=== PATIENT | male | born 1965 | race Caucasian/White ===

== ENCOUNTER 2021-04-18 08:19 | Emergency (ER) | payer MEDICAID ==
[2021-04-18] MEDS ORDERED: Sodium Chloride 0.9% 10 ML Syringe FLUSH PRN (08:33)
[2021-04-18] MEDS ORDERED: Aspirin 81 MG Tab.Chew PO ONE (08:34)
[2021-04-18] MEDS ORDERED: Nitroglycerin 0.4 MG Tab.SL SL ONE ×2 (08:34→09:14)
--- NOTE | 2021-04-18 08:35 | EDM.PDOC ---
ED HPI GENERAL MEDICAL PROBLEM - General Source of Information: Reports: Patient Middle Chest Pain Score (Numeric/FACES): 5 <Kaykay Saba - Last Filed: 04/18/21 09:02> <Grecia Munoz - Last Filed: 04/18/21 12:40> - General Chief Complaint: Cardiovascular Problem Stated Complaint: CHEST PAIN Time Seen by Provider: 04/18/21 08:30 - History of Present Illness INITIAL COMMENTS - FREE TEXT/NARRATIVE: Vance is a 55 y/o male who comes to the ER via POV with chest pain. He reports being at work this AM and he started to have midsternal chest pain. He denied that activity changed the pain. He rates it 5/10. He denies diaphoresis or radiation of the pain, but he did get nauseated. No previous cardiac hx, he adams shave a HX of HTN. His dad did have a stent placed around age 50. (Kaykay Saba) - Related Data Allergies Allergy/AdvReac Type Severity Reaction Status Date / Time No Known Allergies Allergy Verified 04/18/21 08:51 Home Meds: Home Meds Dorzolamide HCl/Timolol Maleat [Cosopt Eye Drops] 1 drop EYEBOTH BID 01/02/21 [History] Latanoprost/Pf [Latanoprost 0.005% Eye Drop] 1 drop EYEBOTH BEDTIME 01/02/21 [History] Saw [place] 160 mg PO DAILY 01/02/21 [History] Vit A/Vit C/Vit E/Zinc/Copper [Preservision] 1 each PO BID 01/02/21 [History] amLODIPine [Norvasc] 5 mg PO DAILY 01/02/21 [History] lisinopriL [Lisinopril] 20 mg PO BID 01/02/21 [History] Past Medical History HEENT History: Reports: Glaucoma Cardiovascular History: Reports: Hypertension Gastrointestinal History: Reports: Other (See Below) Other Gastrointestinal History: anisocoria - Past Surgical History HEENT Surgical History: Reports: Other (See Below) Other HEENT Surgeries/Procedures: eye surgery glaucoma right eye <Kaykay Saba - Last Filed: 04/18/21 09:02> Review of Systems - Review of Systems Review Of Systems: See Below Constitutional: Reports: No Symptoms Eyes: Reports: No Symptoms Ears: Reports: No Symptoms Nose: Reports: No Symptoms Mouth/Throat: Reports: No Symptoms Respiratory: Reports: No Symptoms Cardiovascular: Reports: Chest Pain GI/Abdominal: Reports: Nausea Genitourinary: Reports: No Symptoms Musculoskeletal: Reports: No Symptoms Skin: Reports: No Symptoms Neurological: Reports: No Symptoms Psychiatric: Reports: No Symptoms <Kaykay Saba Last Filed: 04/18/21 09:02> ED EXAM, GENERAL - Physical Exam Exam: See Below General Appearance: Alert, WD/WN, No Apparent Distress (Adult male.) Ears: Hearing Grossly Normal Nose: Normal Inspection Throat/Mouth: Normal Inspection, Normal Lips, Normal Voice Head: Atraumatic, Normocephalic Neck: Normal Inspection, Supple Respiratory/Chest: No Respiratory Distress, Lungs Clear, Chest Non-Tender Cardiovascular: Normal Peripheral Pulses, Regular Rate, Rhythm, No Murmur GI/Abdominal: Normal Bowel Sounds, Soft, Non-Tender (Male) Exam: Deferred Rectal (Males) Exam: Deferred Back Exam: Normal Inspection Extremities: Normal Inspection, Normal Range of Motion, No Pedal Edema, Normal Capillary Refill Neurological: Alert, Oriented, CN II-XII Intact, Normal Cognition Psychiatric: Normal Affect, Normal Mood Skin Exam: Warm, Dry, Intact, Normal Color <Kaykay Saba Filed: 04/18/21 09:02> #1 Interpretation EKG Date: 04/18/21 Time: 08:23 Rhythm: NSR Rate (Beats/Min): 74 [place]: Normal P-Wave: Present QRS: Normal ST-T: Normal QT: Normal <Kaykay Saba Filed: 04/18/21 09:02> #1 Interpretation EKG Interpretation Comments: Normal Sinus Rhythm (Kaykay Saba) Course <Kaykay Saba Filed: 04/18/21 09:02> <Grecia Munoz Last Filed: 04/18/21 12:40> - Vital Signs Text/Narrative:: 829 Patient seen by the CHAINMAN. Labs, CXR, & EKG ordered. He was given ASA 324mgpo and a Nitro 0.4mg SL. Pain decreased to 1/10 and second Nitro given. 0900 Report given to Julieta Munoz PA-C at shift change. Labs pending. (Kaykay Saba) Last Recorded V/S: Last Vital Signs Temp 97.2 F 04/18/21 08:19 Pulse 77 04/18/21 09:03 Resp 17 04/18/21 09:03 BP 121/74 04/18/21 09:03 Pulse Ox 98 04/18/21 09:03 - Orders/Labs/Meds Orders: Active Orders 24 hr Category Date Time Status EKG Documentation Completion [RC] STAT Care 04/18/21 08:34 Active Sodium Chloride 0.9% [Normal Saline] 1,000 ml Med 04/18/21 08:45 Active IV ASDIRECTED Sodium Chloride 0.9% [Saline Flush] Med 04/18/21 08:33 Active 10 ml FLUSH ASDIRECTED PRN Saline Lock Insert [OM.PC] Stat Oth 04/18/21 08:34 Ordered Medication Orders Sodium Chloride (Normal Saline) 1,000 mls @ 50 mls/hr IV ASDIRECTED TIERRA Last Admin: 04/18/21 09:14 Dose: 50 mls/hr Documented by: MAHAD Sodium Chloride (Sodium Chloride 0.9% 10 Ml Syringe) 10 ml FLUSH ASDIRECTED PRN PRN Reason: Keep Vein Open Labs: Laboratory Tests 04/18/21 04/18/21 04/18/21 Range/Units 08:35 08:35 08:35 WBC 5.7 (4.0-10.0) x10^3/uL RBC 5.21 (4.5-6.0) x10^6/uL Hgb 14.4 (14.0-18.0) g/dL Hct 44.1 (40.0-52.0) % MCV 84.6 (78.0-93.0) fL MCH 27.6 (26.0-32.0) pg MCHC 32.7 (32.0-36.0) g/dL RDW Coeff of Darrell 15.0 (10.0-15.0) % Plt Count 272 (130-400) x10^3/uL Neut % (Auto) 64.5 (50.0-80.0) % Lymph % (Auto) 22.3 L (25.0-50.0) % Steele % (Auto) 9.7 (2.0-11.0) % Eos % (Auto) 3.0 (0.0-4.0) % Baso % (Auto) 0.5 (0.2-1.2) % PT 10.4 (9.9-12.5) SEC INR 0.9 L (2.0-3.5) APTT 27.2 (25.6-32.8) SEC Sodium 139 (136-145) mmol/L Potassium 4.2 (3.5-5.1) mmol/L Chloride 106 (98-107) mmol/L Carbon Dioxide 26 (21-32) mmol/L Anion Gap 11.2 (5-15) mmol/L BUN 18 (7-18) mg/dL Creatinine 0.9 (0.70-1.30) mg/dL Est Cr Clr Drug Dosing TNP Estimated GFR (MDRD) > 60 Glucose 104 H (70-99) mg/dL Calcium 8.2 L (8.5-10.1) mg/dL Corrected Calcium 8.7 (8.5-10.1) mg/dL Magnesium 1.8 (1.8-2.4) mg/dL Total Bilirubin 0.3 (0.2-1.0) mg/dL AST 31 (15-37) U/L ALT 26 (16-63) U/L Alkaline Phosphatase 101 (46-116) U/L Troponin I High Sens 5 (<=76) ng/L C-Reactive Protein 0.9 (<=0.9) mg/dL Total Protein 7.5 (6.4-8.2) g/dL Albumin 3.4 (3.4-5.0) g/dL Globulin 4.1 Albumin/Globulin Ratio 0.83 04/18/21 Range/Units 12:02 WBC (4.0-10.0) x10^3/uL RBC (4.5-6.0) x10^6/uL Hgb (14.0-18.0) g/dL Hct (40.0-52.0) % MCV (78.0-93.0) fL MCH (26.0-32.0) pg MCHC (32.0-36.0) g/dL RDW Coeff of Darrell (10.0-15.0) % Plt Count (130-400) x10^3/uL Neut % (Auto) (50.0-80.0) % Lymph % (Auto) (25.0-50.0) % Steele % (Auto) (2.0-11.0) % Eos % (Auto) (0.0-4.0) % Baso % (Auto) (0.2-1.2) % PT (9.9-12.5) SEC INR (2.0-3.5) APTT (25.6-32.8) SEC Sodium (136-145) mmol/L Potassium (3.5-5.1) mmol/L Chloride (98-107) mmol/L Carbon Dioxide (21-32) mmol/L Anion Gap (5-15) mmol/L BUN (7-18) mg/dL Creatinine (0.70-1.30) mg/dL Est Cr Clr Drug Dosing Estimated GFR (MDRD) Glucose (70-99) mg/dL Calcium (8.5-10.1) mg/dL Corrected Calcium (8.5-10.1) mg/dL Magnesium (1.8-2.4) mg/dL Total Bilirubin (0.2-1.0) mg/dL AST (15-37) U/L ALT (16-63) U/L Alkaline Phosphatase (46-116) U/L Troponin I High Sens 5 (<=76) ng/L C-Reactive Protein (<=0.9) mg/dL Total Protein (6.4-8.2) g/dL Albumin (3.4-5.0) g/dL Globulin Albumin/Globulin Ratio Meds: Medications Generic Name Dose Route Start Last Admin Trade Name Freq PRN Reason Stop Dose Admin Sodium Chloride 1,000 mls @ 50 mls/hr 04/18/21 08:45 04/18/21 09:14 Normal Saline IV 50 mls/hr ASDIRECTED TIERRA Administration Sodium Chloride 10 ml 04/18/21 08:33 Sodium Chloride 0.9% 10 Ml Syringe FLUSH ASDIRECTED PRN Keep Vein Open Discontinued Medications Generic Name Dose Route Start Last Admin Trade Name Freq PRN Reason Stop Dose Admin Aspirin 324 mg 04/18/21 08:34 04/18/21 08:23 Aspirin 81 Mg Tab.Chew PO 04/18/21 08:35 324 mg ONETIME ONE Administration Nitroglycerin 0.4 mg 04/18/21 08:34 04/18/21 08:39 Nitroglycerin 0.4 Mg Tab.Sl SL 04/18/21 08:35 0.4 mg ONETIME ONE Administration Nitroglycerin 0.4 mg 04/18/21 09:14 04/18/21 08:49 Nitroglycerin 0.4 Mg Tab.Sl 04/18/21 09:15 0.4 mg ONETIME ONE Administration - Re-Assessments/Exams Free Text/Narrative Re-Assessment/Exam: 04/18/21 09:19 Labs are all normal. EKG shows sinus rhythm. Chest xray clear. Patient feeling good, no further pain. Did contact Dr. Henriquez in regards to obtaining a stress test. Will repeat troponin in 3 hours and if negative, will have patient follow up in clinic tomorrow with her. Patient informed. 04/18/21 1030 Patient resting comfortably. Denies any recurring pain, shortness of breath. 04/18/21 12:39 troponin remains normal. Will have patient follow up in clinic with Dr. Henriquez to arrange stress test. Return if pain recurs or develops changes. (Grecia Munoz) Departure <Kaykay Saba - Last Filed: 04/18/21 09:02> - Departure Time of Disposition: 12:39 Condition: Good - Discharge Information *PRESCRIPTION DRUG MONITORING PROGRAM REVIEWED*: No *COPY OF PRESCRIPTION DRUG MONITORING REPORT IN PATIENT SHAI: No <Grecia Munoz - Last Filed: 04/18/21 12:40> - Departure Disposition: Home, Self-Care 01 Clinical Impression: Chest pain - Discharge Information Instructions: Nonspecific Chest Pain, Adult, [id number] Referrals: Damaris Henriquez MD [Primary Care Provider] - Forms: ED Department Discharge Additional Instructions: 1. Rest. 2. Aspirin daily 3. Contact [facility] to arrange follow up with DR. Henriquez tomorrow to consider stress test due to symptoms and family history 4. Return if pain returns, develop shortness of breath, nausea or sweating. Sepsis Event Note (ED) - Focused Exam Vital Signs: Vital Signs Temp Pulse Resp BP BP Pulse Ox 04/18/21 09:03 77 17 121/74 98 07/01/21 08:49 120/76 04/18/21 08:47 82 16 120/76 98 04/18/21 08:39 135/94 H 04/18/21 08:19 97.2 F 80 16 135/94 H 97
[2021-04-18] MEDS ORDERED: Sodium Chloride 0.9% 1,000 ML IV SCH (08:45)
[2021-04-18 09:03] LABS: PTT,PARTIAL THROMBOPLSTIN TIME 27.2 SEC (25.6-32.8)
[2021-04-18 09:04] LABS: CHLORIDE,CL 106 mmol/L (98-107); SODIUM,NA 139 mmol/L (136-145)
[2021-04-18 09:07] LABS: ANION GAP 11.2 mmol/L (5-15)
--- NOTE | 2021-04-18 09:08 | CR ---
[id number] RAD/RAD Chest PA or AP 1V EXAM: RAD Chest PA or AP 1V INDICATION: CHEST PAIN, HISTORY OF HTN. COMPARISON: None available. DISCUSSION: Cardiomediastinal silhouette is normal in size and contour. No infiltrate, effusion, pneumothorax, or edema. IMPRESSION: No acute cardiopulmonary abnormality. Ran Landaverde DO 04/18/21 0907 Thank you for allowing us to participate in the care of your patient.
[2021-04-18 12:53] VITALS: BP 134/82; PULSE 66
== END 2021-04-18 12:46 | disposition home or self-care (01) ==
LOC: VM.ED 08:19
DX: R07.2 Precordial pain (principal); R07.89 Other chest pain; I10 Essential (primary) hypertension; Z79.899 Other long term (current) drug therapy
CPT/HCPCS: 36415; 71045; 80053; 83735; 84484; 85025; 85610; 85730; 86140; 93005; 99285-25; A9270-GY; J7030

== ENCOUNTER 2021-10-25 08:24 | Day surgery (SDC) | payer BC, MEDICAID ==
[~2021-10-25 08:24] MED LIST: Lactated Ringers 1,000 ML IV SCH; Sodium Chloride 0.9% 10 ML Syringe FLUSH PRN
[2021-10-25] MEDS ORDERED: Propofol 200 MG/20 ML SDV ONE (08:45)
[2021-10-25] MEDS ORDERED: fentaNYL 100 MCG/2 ML SDV ONE ×2 (08:45→10:22)
[2021-10-25] MEDS ORDERED: Midazolam 1 MG/ML 2 ML SDV ONE (08:45)
[2021-10-25] MEDS ORDERED: Ketorolac 30 MG/ML SDV ONE (08:46)
[2021-10-25] MEDS ORDERED: ceFAZolin 1 GM Vial ONE (08:46)
[2021-10-25] MEDS ORDERED: Rocuronium 50 MG/5 ML Vial ONE ×2 (08:50→10:58)
[2021-10-25] MEDS ORDERED: Bupivacaine 0.5%/EPINEPHrine 1:200,000 30 ML SDV ONE (09:04)
[2021-10-25] MEDS ORDERED: Ondansetron 4 MG/2 ML SDV ONE (10:35)
[2021-10-25] MEDS ORDERED: Bupivacaine 0.5%/EPINEPHrine 1:200,000 30 ML SDV INFILT ONE ×2 (11:12)
[2021-10-25] MEDS ORDERED: Glycopyrrolate 0.2 MG/ML 2 ML SDV ONE (11:55)
[2021-10-25] MEDS ORDERED: Atropine 0.4 MG/ML SDV ONE (13:02)
[2021-10-25] MEDS ORDERED: Neostigmine Methylsulfate 10 MG/10 ML MDV ONE (13:02)
--- NOTE | 2021-10-25 13:17 | PCM.PRNOTE ---
- Free Text/Narrative Note: Surgeon: Hector Bennett MD, FACS Preop Diagnosis: Large right inguinal hernia into scrotum Postop Diagnosis: Same Procedure: Open right inguinal hernia repair with mesh Anesthesia: GETA Blood Loss: Minimal Complications: None apprent Findings: 1. Large right indirect inguinal hernia containing bowel extending down into the scrotum. Indications: Mr. Jimenez is a 56 yr old male which a large scrotal hernia. He has had this for many years. Minimal pain. He would like this repaired. Details of Procedure: After informed consent was obtained, the patient was brought to the operating room. GETA was induced by our anesthesia colleagues without incident. He was prepped and draped in the usual fashion. An oblique incision was made parallel to the inguinal ligament. This was carried down to the external oblique fascia with cautery. We suture ligated one superficial vessel. The external oblique was incised with a knife and the incision extended proximally and distally with a scissors. We the inguinal contents from the undersurface of the external oblique fascia. A large indirect hernia was apparent. We got around the inguinal contents at the pubic tubercle with a Trisha drain. The hernia contents were able to be reduced into the abdomen. The sac was dissected off of the cord structures which were preserved throughout the case. There was a small cord lipoma which was excised and discarded. The large sac was skeletonized down to the peritoneal reflection. It was opened and no sliding component was present. The sac was suture ligated with a 3-0 Vicryl. The excess sac was excised and the stump allowed to fall back into the abdomen. We divided some additional cremasteric fibers to completely free up the cord and ileopubic tract. A piece of precut permanent Bard mesh was selected. It was secured to the pubic tubercle and ileopubic tract with 0 Prolene. It was secured medially with 3-0 Vicryl interrupted sutures. The tails were reapproximated using 0 Prolene so the new deep ring would accept the tip of a finger and nothing more. The operative field was irrigated and appeared hemostatic. The external oblique fascia was closed with a running 3-0 Vicryl suture. The subcutaneous fat was closed with a running 3-0 Vicryl suture. Skin was closed with 4-0 Vicryl and dressed with dermabond. The patient was woken from general anesthesia without incident and tolerated the procedure well. Hector Bennett MD, FACS General Surgery
[2021-10-25] MEDS ORDERED: Ondansetron 4 MG/2 ML SDV IVPUSH PRN (13:38)
[2021-10-25] MEDS ORDERED: Acetaminophen/oxyCODONE 325-5 MG Tab PO PRN (13:38)
== END 2021-10-25 14:55 | disposition home or self-care (01) ==
LOC: VM.SDS 08:24
PROVIDERS: ATTEND Student in an Organized Health Care Education/Training Program
DX: K40.90 Unilateral inguinal hernia, without obstruction or gangrene, not specified as recurrent (principal); D17.6 Benign lipomatous neoplasm of spermatic cord; I10 Essential (primary) hypertension; E66.9 Obesity, unspecified; Z98.890 Other specified postprocedural states; Z79.899 Other long term (current) drug therapy; Z68.38 Body mass index [BMI] 38.0-38.9, adult; Z01.812 Encounter for preprocedural laboratory examination; Z20.822 Contact with and (suspected) exposure to COVID-19
CPT/HCPCS: 00830; A9270-GY; C1781; J0461; J0690; J1885; J2250; J2405; J2704; J2710; J3010; J3490; J7120; U0002

== ENCOUNTER 2021-10-26 15:24 | Emergency (ER) | payer BC ==
--- NOTE | 2021-10-26 16:52 | EDM.PDOC ---
ED HPI GENERAL MEDICAL PROBLEM - General Stated Complaint: HERNIA SURGERY 10/25/21 NOW HAVING PAIN IN SITE Time Seen by Provider: 10/26/21 16:40 Source of Information: Reports: Patient History Limitations: Reports: No Limitations - History of Present Illness INITIAL COMMENTS - FREE TEXT/NARRATIVE: Patient had right open inguinal hernia repair yesterday and did well. WEnt home after surgery, had not been taking pain medication. Has not had a bowel movement or passed gas since surgery. Today he was noticing the large amount of swelling in the scrotum, has not iced, worn a jock strap for it. He then sneezed and felt some pain in the incision area and became concerned. He is accompanied by his mother. He has been able to urinate without problems. no fevers or drainage Onset: Today - Related Data Allergies Allergy/AdvReac Type Severity Reaction Status Date / Time No Known Allergies Allergy Verified 10/26/21 17:01 Home Meds: Home Meds Dorzolamide HCl/Timolol Maleat [Cosopt Eye Drops] 1 drop EYEBOTH BID 01/02/21 [History] Latanoprost/Pf [Latanoprost 0.005% Eye Drop] 1 drop EYEBOTH BEDTIME 01/02/21 [History] Saw [place] 160 mg PO DAILY 01/02/21 [History] amLODIPine [Norvasc] 5 mg PO DAILY 01/02/21 [History] lisinopriL [Lisinopril] 20 mg PO BID 01/02/21 [History] Latanoprost [Xalatan 0.005% Ophth Soln] 1 drop EYEBOTH ASDIRECTED 09/26/21 [History] Past Medical History HEENT History: Reports: Glaucoma Cardiovascular History: Reports: Hypertension Gastrointestinal History: Reports: Other (See Below) Other Gastrointestinal History: anisocoria Endocrine/Metabolic History: Reports: Obesity/BMI 30+ - Past Surgical History HEENT Surgical History: Reports: Other (See Below) Other HEENT Surgeries/Procedures: eye surgery glaucoma right eye Male Surgical History: Reports: Other (See Below) (right open inguinal hernia) Social & Family History - Caffeine Use Caffeine Use: Reports: None ED ROS GENERAL - Review of Systems Review Of Systems: See Below Constitutional: Reports: No Symptoms HEENT: Reports: No Symptoms Respiratory: Reports: No Symptoms Cardiovascular: Reports: No Symptoms Endocrine: Reports: No Symptoms : Reports: Other (scrotal swelling, right inguinal hernia pain and swelling) ED EXAM, GENERAL - Physical Exam Exam: See Below Exam Limited By: No Limitations General Appearance: Alert, WD/WN, No Apparent Distress Ears: Normal External Exam Head: Atraumatic Neck: Normal Inspection Respiratory/Chest: No Respiratory Distress, Lungs Clear, Chest Non-Tender Cardiovascular: Normal Peripheral Pulses, Regular Rate, Rhythm (Male) Exam: Scrotal Swelling (with some echymosis from surgery), Other (right inguinal area with firmness noted from surgery, no wound dehiscence no signs of sutures loose. no drainage or redness) Extremities: Normal Inspection Neurological: Alert, Oriented, CN II-XII Intact Course - Vital Signs Last Recorded V/S: Last Vital Signs Temp 37.1 C 10/26/21 16:15 Pulse 85 10/26/21 16:15 Resp 16 10/26/21 16:15 BP 133/91 H 10/26/21 16:15 Pulse Ox 95 10/26/21 16:15 - Re-Assessments/Exams Free Text/Narrative Re-Assessment/Exam: 10/26/21 18:40 discussed with patient that the swelling is typical. needs jock strap, ice, elevation and rest. incision looks good, will protect it and bend at the waist some with coughing and sneezing. needs to make sure is having bowel movements, follow up with surgeon Departure - Departure Time of Disposition: 16:46 Disposition: Home, Self-Care 01 Condition: Good Clinical Impression: Incisional pain, Scrotal swelling - Discharge Information *PRESCRIPTION DRUG MONITORING PROGRAM REVIEWED*: Not Applicable *COPY OF PRESCRIPTION DRUG MONITORING REPORT IN PATIENT SHAI: Not Applicable Instructions: Scrotal Swelling, Open Hernia Repair, Adult, Care After, [id number] Referrals: Damaris Henriquez MD [Primary Care Provider] - Forms: ED Department Discharge Additional Instructions: You need to use a jock strap , ice and elevation along with rest to help the scrotal swelling. this is typical. REturn for inability to urinate. The incision is swollen but looks good. Make sure the try to protect this when sneezing or coughing as discussed. Make sure you are having normal bowel movements and add miralax to the regime if no bowel movement by tomorrow. DRink plenty of fluids and walk frequently to get the bowel moving and starta passing gas. Follow up with surgeon as directed Sepsis Event Note (ED) - Focused Exam Vital Signs: Vital Signs Temp Pulse Resp BP Pulse Ox 10/26/21 16:15 37.1 C 85 16 133/91 H 95
== END 2021-10-26 16:58 | disposition home or self-care (01) ==
LOC: VM.ED 15:24
DX: N50.89 Other specified disorders of the male genital organs (principal); G89.18 Other acute postprocedural pain; R10.31 Right lower quadrant pain; I10 Essential (primary) hypertension; E66.9 Obesity, unspecified; Z79.899 Other long term (current) drug therapy
CPT/HCPCS: 99283

== ENCOUNTER 2023-12-09 08:07 | Emergency (ER) | payer BC, MEDICAID ==
[2023-12-09 08:54] LABS: BASOPHILS PERCENT AUTO 0.4 % (0.2-1.2); EOSINOPHILS ABSOLUTE AUTO 0.1 x10^3/uL (0.0-0.5); EOSINOPHILS PERCENT AUTO 2.5 % (0.0-4.0); HEMATOCRIT 43.1 % (40.0-52.0); LYMPHOCYTES ABSOLUTE AUTO 1.1 x10^3/uL (1.0-4.8); LYMPHOCYTES PERCENT AUTO 23.4 % (25.0-50.0); MEAN CORPUSCULAR HEMOGLOBIN 27.6 pg (26.0-32.0); MEAN CORPUSCULAR HGB CONC 32.5 g/dL (32.0-36.0); MONOCYTES ABSOLUTE AUTO 0.5 x10^3/uL (0.0-0.8); MONOCYTES PERCENT AUTO 9.3 % (2.0-11.0); NEUTROPHILS ABSOLUTE AUTO 3.1 x10^3/uL (1.8-7.7); NEUTROPHILS PERCENT AUTO 64.4 % (50.0-80.0); PLATELET COUNT,PLT 255 x10^3/uL (130-400); RED BLOOD CELL COUNT 5.07 x10^6/uL (4.5-6.0); WHITE BLOOD CELL COUNT,WBC 4.8 x10^3/uL (4.0-10.0)
[2023-12-09 09:17] LABS: ALANINE AMINOTRANSFERASE,ALT 27 U/L (16-63); ALBUMIN 3.7 g/dL (3.4-5.0); ALKALINE PHOSPHATASE 95 U/L (46-116); ASPARTATE AMNIOTRANSFERASE,AST 22 U/L (15-37); BILIRUBIN TOTAL 0.5 mg/dL (0.2-1.0); BLOOD UREA NITROGEN,BUN 14 mg/dL (7-18); CALCIUM 8.8 mg/dL (8.5-10.1); CARBON DIOXIDE,CO2 25 mmol/L (21-32); CHLORIDE,CL 105 mmol/L (98-107); CREATININE 0.9 mg/dL (0.70-1.30); GLUCOSE RANDOM 91 mg/dL (70-99); PROTEIN TOTAL,TP 7.4 g/dL (6.4-8.2); SODIUM,NA 140 mmol/L (136-145)
[2023-12-09 09:19] LABS: ESTIMATED GFR 100 mL/min (>=60)
== END 2023-12-09 09:40 | disposition home or self-care (01) ==
LOC: SUPCPDRO 08:07 → VM.ED 08:07
DX: M79.622 Pain in left upper arm (principal); I10 Essential (primary) hypertension; E66.9 Obesity, unspecified; Z68.36 Body mass index [BMI] 36.0-36.9, adult; Z79.899 Other long term (current) drug therapy
CPT/HCPCS: 36415; 80053; 84484; 85025; 93005; 93010; 99283; 99284

== ENCOUNTER 2024-03-18 08:34 | Emergency (ER) | payer MEDICAID ==
[2024-03-18] MEDS: Meclizine 25 MG Tab PO ONE (09:22)
[2024-03-18] MEDS: Ibuprofen 200 MG Tab PO PRN (09:22)
== END 2024-03-18 09:30 | disposition home or self-care (01) ==
LOC: VM.ED 08:34
DX: H81.10 Benign paroxysmal vertigo, unspecified ear (principal); I10 Essential (primary) hypertension; Z79.899 Other long term (current) drug therapy
CPT/HCPCS: 99284; A9270-GY

== ENCOUNTER 2024-12-22 07:56 | Emergency (ER) | payer MEDICAID ==
[2024-12-22] MEDS: Lactated Ringers 1,000 ML IV SCH (08:06)
[2024-12-22 08:19] LABS: BASOPHILS PERCENT AUTO 0.2 % (0.2-1.2); EOSINOPHILS ABSOLUTE AUTO 0.2 x10^3/uL (0.0-0.5); EOSINOPHILS PERCENT AUTO 1.9 % (0.0-4.0); HEMOGLOBIN 13.6 g/dL (14.0-18.0); IMMATURE GRAN ABSOLUTE AUTO 0.01 x10^3/uL (0.00-0.07); LYMPHOCYTES ABSOLUTE AUTO 2.8 x10^3/uL (1.0-4.8); LYMPHOCYTES PERCENT AUTO 35.3 % (25.0-50.0); MEAN CORPUSCULAR HEMOGLOBIN 28.9 pg (26.0-32.0); MEAN CORPUSCULAR VOLUME 85.1 fL (78.0-93.0); MONOCYTES ABSOLUTE AUTO 0.7 x10^3/uL (0.0-0.8); MONOCYTES PERCENT AUTO 9.2 % (2.0-11.0); NEUTROPHILS ABSOLUTE AUTO 4.3 x10^3/uL (1.8-7.7); NEUTROPHILS PERCENT AUTO 53.3 % (50.0-80.0); PLATELET COUNT,PLT 271 x10^3/uL (130-400)
[2024-12-22 08:25] LABS: HCO3 VENOUS,POC 20 mmol/L (22-29); O2 SATURATION VENOUS,POC 95 %; PCO2 VENOUS,POC 29 mmHg (41-51); PH VENOUS,POC 7.45 pH (7.32-7.43); PO2 VENOUS,POC 69 mmHg
[2024-12-22 08:37] LABS: A/G RATIO 0.94; ALANINE AMINOTRANSFERASE,ALT 17 U/L (16-63); ALBUMIN 3.2 g/dL (3.4-5.0); ALKALINE PHOSPHATASE 87 U/L (46-116); ASPARTATE AMNIOTRANSFERASE,AST 16 U/L (15-37); BILIRUBIN TOTAL 0.5 mg/dL (0.2-1.0); BLOOD UREA NITROGEN,BUN 12 mg/dL (7-18); CALCIUM 8.9 mg/dL (8.5-10.1); CARBON DIOXIDE,CO2 24 mmol/L (21-32); CHLORIDE,CL 104 mmol/L (98-107); CREATININE 1.1 mg/dL (0.70-1.30); GLUCOSE RANDOM 132 mg/dL (70-99); MAGNESIUM 1.8 mg/dL (1.8-2.4); POTASSIUM,K 3.7 mmol/L (3.5-5.1); PROTEIN TOTAL,TP 6.6 g/dL (6.4-8.2); SODIUM,NA 140 mmol/L (136-145)
[2024-12-22 08:39] LABS: ANION GAP 15.7 mmol/L (5-15); ESTIMATED GFR 78 mL/min (>=60)
== END 2024-12-22 11:34 | disposition home or self-care (01) ==
LOC: VM.ED 07:56
DX: R55 Syncope and collapse (principal); I10 Essential (primary) hypertension; E78.00 Pure hypercholesterolemia, unspecified; Z79.899 Other long term (current) drug therapy
CPT/HCPCS: 36415; 70450; 80053; 82803; 83605; 83735; 84484; 85025; 93010; 96360; 99284; 99285-25; J7120